=== PATIENT | male | born 1970 | race African-American/Black ===

== ENCOUNTER 2017-02-21 15:05 | Emergency (ER) | payer BC, OTHER ==
[2017-02-21 15:12] VITALS: BP 141/95; PULSE 48; TEMP 98.1; BMI 26.4
--- NOTE | 2017-02-21 16:07 | PDOC ---
History of Present Illness - General Chief Complaint: Back Pain Stated Complaint: BACK PAIN Time Seen by Provider: 02/21/17 15:33 History Source: Patient Exam Limitations: No Limitations - History of Present Illness Initial Comments: CHIEF COMPLAINT: 46 y/o afebrile male with PMH HTN c/o back spasms for the past few days. HISTORY OF PRESENT ILLNESS: The patient states he get back spasms from time to time and the other day he fell onto his butt and has had spasms ever since. he states he normally takes flexeril for the spams but doesn't have any more. He denies LOC, head trauma, n/v/d, midline spine TTP, bowel/bladder incontinence, saddle anesthesia, hematuria, dysuria. Vital signs on arrival are notable for pulse of 48. REVIEW OF SYSTEMS: GENERAL/CONSTITUTIONAL: No fever/chills. No weakness. No weight change. GASTROINTESTINAL: No abd pain, nausea, vomiting, diarrhea. GENITOURINARY: No dysuria, frequency, or change in urination. MUSCULOSKELETAL: +right back spasm. No neck or back pain. SKIN: No rash or easy bruising. NEUROLOGIC: No headache, vertigo, loss of consciousness, or loss of sensation. PHYSICAL EXAM: GENERAL: The patient is awake, alert, and fully oriented, in no acute distress. He is well appearing, ambulatory, in NAD or obvious discomfort. HEAD: Normal with no signs of trauma. ABDOMEN: Soft, non-distended, non-tender even to deep palpation, no hepatomegaly or splenomegaly, no masses. BACK: No CVA TTP b/l. some discomfort with lateral lumbar spine movements. TTP of right lumbar paravertebral muscles at level of L1-L2. No spasms noted. EXTREMITIES: Normal range of motion, no edema. NEUROLOGICAL: Normal speech, normal gait. CN II-XII grossly intact. No saddle anesthesia. PSYCH: Normal mood, normal affect. SKIN: Warm, dry, normal turgor, no rashes or lesions noted. Past History - Past Medical History Allergies/Adverse Reactions: Allergies Allergy/AdvReac Type Severity Reaction Status Date / Time No Known Allergies Allergy Verified 02/21/17 15:08 Home Medications: Ambulatory Orders Cyclobenzaprine HCl [Flexeril 10 mg] 10 mg PO TID PRN #20 tablet 02/21/17 Lisinopril [Prinivil] 10 mg PO DAILY 02/21/17 HTN: Yes - Immunization History Immunization Up to Date: Yes - Psycho/Social/Smoking Cessation Hx Suicidal Ideation: No Smoking Status: No Smoking History: Never smoked Number of Cigarettes Smoked Daily: 0 Information on smoking cessation initiated: No Hx Alcohol Use: No Drug/Substance Use Hx: No *Physical Exam - Vital Signs Last Vital Signs Temp Pulse Resp BP Pulse Ox 98.1 F 48 L 17 141/95 98 02/21/17 15:09 02/21/17 15:09 02/21/17 15:09 02/21/17 15:09 02/21/17 15:09 Medical Decision Making - Medical Decision Making A/P: 46 y/o male with right upper back pain. Plan is to discharge to home with rx for flexeril. Informed the patient it may cause drowsiness. Suggested he also use heat and massage to the affected area. Instructed him to return to the ER with any worsening or concerning symptoms. The patient verbalizes understanding of all instructions, has no further questions and is awaiting discharge. *DC/Admit/Observation/Transfer Diagnosis at time of Disposition: Muscle spasm - Discharge Dispostion Disposition: HOME Condition at time of disposition: Good - Prescriptions Prescriptions: Cyclobenzaprine HCl [Flexeril 10 mg] 10 mg PO TID PRN #20 tablet PRN Reason: Muscle Spasms - Referrals Referrals: Femi Montanez [Primary Care Provider] - - Patient Instructions Printed Discharge Instructions: DI for Back Spasm Additional Instructions: Discharge Instructions: -A muscle relaxer was sent to your pharmacy; it may cause drowsiness -Apply heating pad and massage to affected area -Return to the ER with any worsening or concerning symptoms
[2017-02-21] MEDS ORDERED: CYCLOBENZAPRINE HCL 10 MG TABLET (FP) PO ONE (16:11)
[2017-02-21] MEDS ORDERED: CYCLOBENZAPRINE HCL 10 MG TABLET (FP) ONE (16:30)
== END 2017-02-21 16:34 | disposition home or self-care (01) ==
LOC: JERFT 15:05
DX: M54.6 Pain in thoracic spine (principal); M62.830 Muscle spasm of back; W19.XXXA Unspecified fall, initial encounter; Y93.89 Activity, other specified; Y92.89 Other specified places as the place of occurrence of the external cause
CPT/HCPCS: 99281-25

== ENCOUNTER 2018-01-10 08:11 | Emergency (ER) | payer BC, OTHER ==
[2018-01-10 08:14] VITALS: BP 145/70; PULSE 52; TEMP 98; BMI 26.4
[2018-01-10] MEDS ORDERED: DIPHTH,PERTUSS(ACELL),TET 0.5 ML DISP.SYRIN IM ONE (08:38)
[2018-01-10] MEDS ORDERED: IBUPROFEN 600 MG TABLET (FP) PO ONE ×2 (08:38→08:42)
--- NOTE | 2018-01-10 08:43 | PDOC ---
History of Present Illness - General Chief Complaint: Injury Stated Complaint: FALL/ THIGH, ANKLE PAIN Time Seen by Provider: 01/10/18 08:21 History Source: Patient Exam Limitations: No Limitations - History of Present Illness Initial Comments: 01/10/18 08:38 was walking down stairs , missed a step and fell sideways landing on left hip / lateral lower leg yesterdayu. Able to bear weight but painful. No other injury Occurred: reports: yesterday Severity: reports: mild, moderate Pain Location: reports: lower extremity (left leg/ hip and tibia) Method of Injury: Yes: fall Modifying Factors: improves with: None Loss of Consciousness: no loss of consciousness Associated Symptoms (Fall): denies symptoms Past History - Travel Traveled outside of the country in the last 30 days: No Close contact w/someone who was outside of country & ill: No - Past Medical History Allergies/Adverse Reactions: Allergies Allergy/AdvReac Type Severity Reaction Status Date / Time No Known Allergies Allergy Verified 01/10/18 08:12 Home Medications: Ambulatory Orders Lisinopril [Prinivil] 10 mg PO DAILY 02/21/17 COPD: No HTN: Yes - Immunization History Immunization Up to Date: Yes - Suicide/Smoking/Psychosocial Hx Smoking Status: No Smoking History: Never smoked Number of Cigarettes Smoked Daily: 0 Information on smoking cessation initiated: No Hx Alcohol Use: No Drug/Substance Use Hx: No Substance Use Type: None Review of Systems - Review of Systems Able to Perform ROS?: Yes Is the patient limited Italian proficient: Yes Constitutional: Yes: Symptoms Reported, See HPI. No: Malaise Musculoskeletal: Yes: Symptoms Reported, See HPI, Joint Pain, Joint Swelling, Muscle Pain (left thigh/ quads). No: Back Pain Integumentary: Yes: See HPI, Bruising Neurological: No: Symptoms reported All Other Systems: Reviewed and Negative *Physical Exam - Vital Signs Last Vital Signs Temp Pulse Resp BP Pulse Ox 98.0 F 52 L 18 145/70 100 01/10/18 08:12 01/10/18 08:12 01/10/18 08:12 01/10/18 08:12 01/10/18 08:12 - Physical Exam General Appearance: Yes: Nourished, Appropriately Dressed. No: Apparent Distress HEENT: positive: EMMETT, Normal ENT Inspection Neck: positive: Supple Respiratory/Chest: negative: Chest Tender Gastrointestinal/Abdominal: positive: Soft. negative: Tender Musculoskeletal: negative: Normal Inspection, Decreased Range of Motion, Vertebral Tenderness Extremity: positive: Normal Capillary Refill, Swelling (mild contusion/ hematoma to lateral edge of upper tibia. No crepitus or stepoff . Neurovasc intact to feet. ). negative: Normal Inspection, Normal Range of Motion (some limitation due to swellign and pain to lateral left leg/ greater trocanter - ~~ 10cm2 hematoma to same, FROM at hip / knee, Able to contract quads well. ) Integumentary: positive: Ecchymosis, Bruising Neurologic: positive: sleep medicine physician II-XII NML intact, Fully Oriented, Alert, Normal Mood/ Affect, Normal Response, Motor Strength 02/15 Progress Note - Progress Note Progress Note: s/P fall with multiple hematomas/contusions. No evidence of fracture or deformity therefore will hold Exrays/ Treat conservatively. Boostrix updated today. *DC/Admit/Observation/Transfer Diagnosis at time of Disposition: Hematoma of hip Qualifiers: Encounter type: initial encounter Laterality: left Qualified Code(s): S70.02XA - Contusion of left hip, initial encounter - Discharge Dispostion Disposition: HOME Condition at time of disposition: Stable Admit: No - Referrals Referrals: Femi Montanez [Primary Care Provider] - - Patient Instructions Printed Discharge Instructions: DI for Contusion Additional Instructions: Rest, ice to area on and off for 15 minutes 4-6 times a day Avoid heavy lifting or exercise until pain and swelling is resolved or until further directed Keep area highly elevated to reduce swelling Use splints/Victor Manuel wrap as directed Followup with orthopedist in one to 2 days if not improving, if significantly improved may wait one week for followup with orthopedist May use ibuprofen 2-200 mg tablets every 6 hours as needed for pain - Post Discharge Activity Forms/Work/School Notes: Back to Work
== END 2018-01-10 08:52 | disposition home or self-care (01) ==
LOC: JERFT 08:11
PROC: 3E0234Z Introduction of Serum, Toxoid and Vaccine into Muscle, Percutaneous Approach (ICD-10-PCS; principal; 2018-01-10)
DX: S70.02XA Contusion of left hip, initial encounter (principal); W10.8XXA Fall (on) (from) other stairs and steps, initial encounter; Y93.89 Activity, other specified; Y92.89 Other specified places as the place of occurrence of the external cause; Y99.8 Other external cause status; I10 Essential (primary) hypertension
CPT/HCPCS: 90715; 99281-25

== ENCOUNTER 2018-02-23 19:59 | Emergency (ER) | payer BC ==
[2018-02-23 20:09] VITALS: BP 125/72; PULSE 58; TEMP 98; BMI 26.1
--- NOTE | 2018-02-23 21:12 | PDOC ---
History of Present Illness - General Chief Complaint: Injury Stated Complaint: PAIN Time Seen by Provider: 02/23/18 20:39 History Source: Patient Exam Limitations: No Limitations - History of Present Illness Initial Comments: 02/23/18 21:09 47-year-old male without significant past medical history presents emergency Department with left foot pain status post dropping his phone. Patient noted he got this phone and stuck his foot out to break the fall of the phone which caused the fall and strike him on the dorsum of his left foot. Patient is able to walk on his foot. Past History - Past Medical History Allergies/Adverse Reactions: Allergies Allergy/AdvReac Type Severity Reaction Status Date / Time No Known Allergies Allergy Verified 02/23/18 20:06 Home Medications: Ambulatory Orders Lisinopril [Prinivil] 10 mg PO DAILY 02/21/17 COPD: No HTN: Yes - Immunization History Immunization Up to Date: Yes - Suicide/Smoking/Psychosocial Hx Smoking Status: No Smoking History: Never smoked Number of Cigarettes Smoked Daily: 0 Hx Alcohol Use: No Drug/Substance Use Hx: No Substance Use Type: None Review of Systems - Review of Systems Able to Perform ROS?: Yes Is the patient limited Nigerien proficient: No Constitutional: No: Symptoms Reported HEENTM: No: Symptoms Reported Respiratory: No: Symptoms reported Cardiac (ROS): No: Symptoms Reported ABD/GI: No: Symptoms Reported : No: Symptoms Reported Musculoskeletal: Yes: See HPI Integumentary: No: Symptoms Reported Neurological: No: Symptoms reported *Physical Exam - Vital Signs Last Vital Signs Temp Pulse Resp BP Pulse Ox 98 F 58 L 18 125/72 98 02/23/18 20:06 02/23/18 20:06 02/23/18 20:06 02/23/18 20:06 02/23/18 20:06 - Physical Exam General Appearance: Yes: Appropriately Dressed. No: Apparent Distress Respiratory/Chest: positive: Lungs Clear, Normal Breath Sounds. negative: Respiratory Distress, Accessory Muscle Use Cardiovascular: positive: Regular Rhythm, Regular Rate. negative: Murmur Vascular Pulses: Dorsalis-Pedis (R): 2+, Doralis-Pedis (L): 2+ Musculoskeletal: positive: Normal Inspection, Other (Tender to the dorsum of the left foot at the base of the great toe.). negative: CVA Tenderness Extremity: positive: Other (refer to musculoskeletal assessment) Integumentary: positive: Normal Color, Dry, Warm Neurologic: positive: Alert, Normal Response, Motor Strength 5/5 Medical Decision Making - Medical Decision Making 02/23/18 21:11 A/P: 47-year-old male without significant past medical history with left foot pain status post dropping his cell phone onto it Tenderness to the dorsum of the left foot at the base of the great toe Able to fully flex and extend great toe against resistance without difficulty. No erythema noted to the area X-rays, reassess 02/23/18 22:09 X-rays read by me: No fracture, subluxation or dislocation is present. I discussed the physical exam findings, ancillary test results and final diagnoses with the patient. I answered all of the patient's questions. The patient was satisfied with the care received and felt comfortable with the discharge plan and treatment plan. The patient will call his doctor within 96 hours to arrange follow-up and will return to the Emergency Department with any new, persistent or worsening symptoms. *DC/Admit/Observation/Transfer Diagnosis at time of Disposition: Foot contusion Qualifiers: Encounter type: initial encounter Laterality: left Qualified Code(s): S90.32XA - Contusion of left foot, initial encounter - Discharge Dispostion Disposition: HOME Condition at time of disposition: Stable Decision to Admit order: No - Referrals Referrals: Femi Montanez [Primary Care Provider] - Eric Baldwin MD [Staff Physician] - - Patient Instructions Additional Instructions: Take Tylenol or Motrin as needed for pain. Follow manufacturers instructions for appropriate dosage. Apply ice for 20 minutes and removed for at least 20 minutes before reapplying the ice. You've been given the number for a raymond mill operator. If symptoms do not resolve within the next 7 days call the raymond mill operator for further evaluation. Return to emergency department for discoloration of the foot, numbness or tingling to the foot, worsening pain, or any other concerns. Thank you very much for choosing us to provide your emergent healthcare needs. - Post Discharge Activity Forms/Work/School Notes: Back to Work
== END 2018-02-23 22:14 | disposition home or self-care (01) ==
LOC: JERFT 19:59
DX: S90.32XA Contusion of left foot, initial encounter (principal); W20.8XXA Other cause of strike by thrown, projected or falling object, initial encounter; Y93.89 Activity, other specified; Y92.89 Other specified places as the place of occurrence of the external cause; Y99.8 Other external cause status; I10 Essential (primary) hypertension
CPT/HCPCS: 73630-TC-LT; 99281-25

== ENCOUNTER 2018-07-27 00:55 | Emergency (ER) | payer BC ==
[2018-07-27 01:10] VITALS: TEMP 97.6; BMI 25.4
[2018-07-27] MEDS ORDERED: NITROGLYCERIN 2% OINTMENT - 1GM PACKET TD ONE ×2 (01:40→01:45)
[2018-07-27] MEDS ORDERED: NITROGLYCERIN SUBLINGUAL 1/150 0.4 MG TAB SL ONE (01:40)
--- NOTE | 2018-07-27 01:40 | PDOC ---
Attending Attestation - Resident Resident Name: Gilmer Law - ED Attending Attestation I have performed the following: I have examined & evaluated the patient, The case was reviewed & discussed with the resident, I agree w/resident's findings & plan - HPI HPI: 07/27/18 01:39 Pt comes with HTN. 07/27/18 02:49 He has not been taking lisinopril, beacause he is afraid that it is "too strong " for his kidneys. 07/27/18 02:52 He is anxious because his mom of aneurysm in the brain. He had a head CT 2 days ago in [facility]. also cxr done there so he is refusing one here. We will not repeat blood tests today. - Physicial Exam PE: 07/27/18 02:50 Agree with resident exam. - Medical Decision Making 07/27/18 02:51 Pt's BP came down with NTG and paste. to 150s systolic. Pt placed on diovan 40 mg. EKG is NSR/bradycardia. Pt will have utox sent. 07/27/18 05:38 We will be getting basic labs and cardiac enzymes, as he has 2+ blood in the urine, which may signify end oragan damage from elevated BPs. 07/27/18 19:31 Signed out to the day team; they can follow chemistries and refer pt to the process maintenance technician.
[2018-07-27] MEDS ORDERED: NITROGLYCERIN SUBLINGUAL 1/150 0.4 MG TAB ONE (01:45)
--- NOTE | 2018-07-27 02:06 | PDOC ---
History of Present Illness <Ozzie Rollins - Last Filed: 07/27/18 07:30> - General History Source: Patient - History of Present Illness Initial Comments: 48 y/o M w/PMH of HTN presents to the ER with elevated BP. Pt was driving home when he noticed b/l temporal throbbing FRAZIER and had blurry vision and some chest cramping for approximately 1 min and some dizziness came to the ER. He had similar symptoms 1 week ago and went to [facility] and was treated with nitropaste. Before that episode he never had these symptoms. He currently denies any of the symptoms. On presentation to the ER his BP was 190/90. At home his pressures run from 150-160/70-90s. He denies N/V/F/C, SOB, LE edema, abd pain, dysuria, change in BMs. PMH: HTN PSHx: L testicle removal; Knee arthroscopic surgery SH: denies smoking. Drinks 3-4 beers on weekends. No drug use. FH: Mother passed from aneurysm Allergies: Shellfish Medications: Lisinopril/HCTZ <Gilmer Law - Last Filed: 07/27/18 19:30> - General Chief Complaint: Blood Pressure Problem Stated Complaint: HIGH BP/HEADACHE Time Seen by Provider: 07/27/18 01:23 Past History <Ozzie Rollins - Last Filed: 07/27/18 07:30> - Past Medical History COPD: No HTN: Yes - Immunization History Immunization Up to Date: Yes - Suicide/Smoking/Psychosocial Hx Smoking Status: No Smoking History: Never smoked Number of Cigarettes Smoked Daily: 0 Hx Alcohol Use: No Drug/Substance Use Hx: No Substance Use Type: None <Gilmer Law - Last Filed: 07/27/18 19:30> - Past Medical History Allergies/Adverse Reactions: Allergies Allergy/AdvReac Type Severity Reaction Status Date / Time shellfish derived Allergy Verified 07/27/18 01:02 Home Medications: Ambulatory Orders Lisinopril [Prinivil] 10 mg PO DAILY 02/21/17 Hydrochlorothiazide 12.5 mg PO DAILY 07/27/18 Review of Systems - Review of Systems Able to Perform ROS?: Yes Constitutional: No: Chills, Fever HEENTM: Yes: Blurred Vision Respiratory: No: Cough, Shortness of Breath Cardiac (ROS): Yes: Chest Pain ABD/GI: No: Nausea, Vomiting : No: Dysuria Neurological: Yes: Headache, Dizziness Psychiatric: Yes: Anxiety <Gilmer Law - Last Filed: 07/27/18 19:30> *Physical Exam - Vital Signs Last Vital Signs Temp Pulse Resp BP Pulse Ox 97.6 F 89 19 130/89 100 07/27/18 01:00 07/27/18 05:07 07/27/18 05:07 07/27/18 05:07 07/27/18 05:07 <Ozzie Rollins - Last Filed: 07/27/18 07:30> - Vital Signs Last Vital Signs Temp Pulse Resp BP Pulse Ox 97.6 F 52 L 19 151/96 99 07/27/18 01:00 07/27/18 01:54 07/27/18 01:54 07/27/18 01:54 07/27/18 01:54 - Physical Exam General Appearance: Yes: Nourished, Appropriately Dressed. No: Apparent Distress HEENT: positive: EOMI, EMMETT, Normal Voice, Other (Normal fundoscopic exam) Neck: positive: Supple Respiratory/Chest: positive: Lungs Clear, Normal Breath Sounds. negative: Respiratory Distress Cardiovascular: positive: Regular Rhythm, Regular Rate, S1, S2. negative: Murmur Gastrointestinal/Abdominal: positive: Normal Bowel Sounds, Soft. negative: Tender Extremity: negative: Pedal Edema Neurologic: positive: Fully Oriented, Alert, Normal Mood/Affect <Gilmer Law - Last Filed: 07/27/18 19:30> ED Treatment Course - LABORATORY CBC & Chemistry Diagram: 07/27/18 05:54 07/27/18 05:54 - ADDITIONAL ORDERS Additional order review: Laboratory Results 07/27/18 07/27/18 07/27/18 05:54 04:50 04:50 Sodium 144 Potassium 3.9 Chloride 108 H Carbon Dioxide 31 Anion Gap 5 L BUN 11 Creatinine 1.2 Creat Clearance w eGFR > 60 Random Glucose 104 Calcium 8.7 Total Bilirubin 0.4 AST 29 ALT 60 Alkaline Phosphatase 70 Creatine Kinase 99 Troponin I < 0.02 Total Protein 7.0 Albumin 3.8 Urine Color Ltyellow Urine Appearance Clear Urine pH 6.0 Ur Specific [place] 1.012 Urine Protein Negative Urine Glucose (UA) Negative Urine Ketones Negative Urine Blood 2+ H Urine Nitrite Negative Urine Bilirubin Negative Urine Urobilinogen Negative Ur Leukocyte Esterase Negative Urine WBC (Auto) 1 Urine RBC (Auto) 3 Urine Mucus Rare Opiates Screen Negative Methadone Screen Negative Barbiturate Screen Negative Phencyclidine Screen Negative Ur Amphetamines Screen Negative MDMA (Ecstasy) Screen Negative Benzodiazepines Screen Negative Cocaine Screen Negative U Marijuana (THC) Screen Negative 07/27/18 05:54 RBC 4.54 MCV 90.9 MCHC 33.9 RDW 13.5 MPV 6.9 L Neutrophils % 72.4 Lymphocytes % 21.1 Monocytes % 4.9 Eosinophils % 1.0 Basophils % 0.6 - Medications Given in the ED: ED Medications Discontinued Medications Generic Name Dose Route Start Last Admin Trade Name Freq PRN Reason Stop Dose Admin Nitroglycerin 1 inch 07/27/18 01:40 07/27/18 01:52 Nitro-Bid 2% Paste - TD 07/27/18 01:41 1 inch ONCE ONE Administration Nitroglycerin 0.4 mg 07/27/18 01:40 07/27/18 01:52 Nitrostat - SL 07/27/18 01:41 0.4 mg ONCE ONE Administration Valsartan 40 mg 07/27/18 02:25 07/27/18 02:33 Diovan - PO 07/27/18 02:26 40 mg ONCE ONE Administration <Ozzie Rollins - Last Filed: 07/27/18 07:30> - LABORATORY CBC & Chemistry Diagram: 07/27/18 05:54 07/27/18 05:54 - Medications Given in the ED: ED Medications Discontinued Medications Generic Name Dose Route Start Last Admin Trade Name Freq PRN Reason Stop Dose Admin Nitroglycerin 1 inch 07/27/18 01:40 07/27/18 01:52 Nitro-Bid 2% Paste - TD 07/27/18 01:41 1 inch ONCE ONE Administration Nitroglycerin 0.4 mg 07/27/18 01:40 07/27/18 01:52 Nitrostat - SL 07/27/18 01:41 0.4 mg ONCE ONE Administration <Gilmer Law - Last Filed: 07/27/18 19:30> Medical Decision Making - Medical Decision Making 07/27/18 02:01 Pt has gone over 24 hr w/o his BP meds (normally takes them q24h) 1 inch nitropaste given. CXR ordered EKG ordered 07/27/18 02:06 BP after nitropaste : 151/96 07/27/18 02:45 BP now 126/87. Pt feels better. No CP, N/V, blurry vision, FRAZIER, dizziness. EKG shows: sinus bradycardia @ 44 bpm. QTc [address] segment elevations or depressions noted. Pt refused CXR. Utox also ordered. Diovan 40 mg given 07/27/18 02:51 Nitropaste removed. 07/27/18 05:37 UA with 2+ blood but only 3RBC Will check CBC, CMP, cardiac profile Labs wnl. To be discharged home. Medication compliance strongly advised. <Gilmer Law - Last Filed: 07/27/18 19:30> *DC/Admit/Observation/Transfer <Ozzie Rollins - Last Filed: 07/27/18 07:30> - Discharge Dispostion Decision to Admit order: No <Gilmer Law - Last Filed: 07/27/18 19:30> Diagnosis at time of Disposition: Hypertensive urgency - Discharge Dispostion Disposition: HOME Condition at time of disposition: Good - Referrals Referrals: Carlos Manuel Sparks MD [Staff Physician] - - Patient Instructions Printed Discharge Instructions: DI for High Blood Pressure Additional Instructions: Please follow up with your primary care physician within 1 week. Check your blood pressure at home and keep a log of it to show your doctor. If you develop worsening of your current symptoms or new onset of concerning symptoms please come back to the ER.
[2018-07-27] MEDS ORDERED: VALSARTAN 40 MG TABLET (FP) PO ONE (02:25)
[2018-07-27] MEDS ORDERED: VALSARTAN 80 MG TABLET (UD) ONE (02:28)
[2018-07-27 05:08] LABS: URINE APPEARANCE CLEAR; URINE BILIRUBIN NEGATIVE (<2.0 mg/dL); URINE COLOR LTYELLOW; URINE GLUCOSE (UA) NEGATIVE (NEGATIVE); URINE KETONE NEGATIVE (NEGATIVE); URINE LEUK ESTERASE NEGATIVE (NEGATIVE); URINE NITRITE NEGATIVE (NEGATIVE); URINE PROTEIN NEGATIVE (NEGATIVE); URINE UROBILINOGEN NEGATIVE mg/dL (0.2-1.0)
[2018-07-27 05:20] LABS: URINE MUCUS RARE
[2018-07-27 05:42] LABS: COCAINE, UR NEGATIVE ng/ml (CUTOFF=300); METHADONE, UR NEGATIVE ng/ml (CUTOFF=300); OPIATES, URI NEGATIVE ng/ml (CUTOFF=300); PHENCYCLIDINE,URINE NEGATIVE ng/ml (CUTOFF=25); URINE AMPHETAMINES NEGATIVE ng/ml (CUTOFF=500); URINE BARBITURATES NEGATIVE ng/ml (CUTOFF=200); URINE BENZODIAZEPINES NEGATIVE ng/ml (CUTOFF=200)
[2018-07-27 06:12] LABS: BASO % 0.6 % (0-2.0); HEMATOCRIT 41.3 % (35.4-49); LYMPH % 21.1 % (8-40); MCH 30.8 pg (25.7-33.7); MCHC 33.9 g/dl (32.0-35.9); MEAN CELL VOLUME 90.9 fl (80-96); MEAN PLT VOLUME 6.9 fl (7.5-11.1); MONO % 4.9 % (3.8-10.2); NEUT % 72.4 % (42.8-82.8); PLATELET COUNT 197 K/MM3 (134-434); RBC 4.54 M/mm3 (4.00-5.60); RDW 13.5 % (11.9-15.9); WHITE BLOOD COUNT 9.3 K/mm3 (4.0-10.0)
[2018-07-27 07:04] LABS: ALBUMIN 3.8 g/dl (3.4-5.0); ALK PHOS 70 U/L (45-117); ANION GAP 5 MMOL/L (8-16); BILIRUBIN,TOTAL 0.4 mg/dL (0.2-1); BLOOD UREA NITROGEN 11 mg/dL (7-18); CALCIUM 8.7 mg/dL (8.5-10.1); CHLORIDE 108 mmol/L (98-107); CO2 31 mmol/L (21-32); CREATININE 1.2 mg/dL (0.55-1.3); GLUCOSE,RANDOM 104 mg/dL (74-106); POTASSIUM 3.9 mmol/L (3.5-5.1); SGOT/AST 29 U/L (15-37); SGPT/ALT 60 U/L (13-61); SODIUM 144 mmol/L (136-145)
[2018-07-27 07:46] VITALS: BP 152/99; PULSE 51
--- NOTE | 2018-07-28 10:33 | EKG ---
Test Reason : Blood Pressure : / mmHG Vent. Rate : 044 BPM Atrial Rate : 044 BPM P-R Int : 160 ms QRS Dur : 102 ms QT Int : 456 ms P-R-T Axes : 052 -13 021 degrees QTc Int : 389 ms MARKED SINUS BRADYCARDIA ABNORMAL ECG WHEN COMPARED WITH ECG OF 25-MAY-2009 18:58, NO SIGNIFICANT CHANGE WAS FOUND Confirmed by TREVOR JETT MD ([id number]) on 07/28/2018 10:32:53 AM Referred By: Confirmed By:TREVOR JETT MD
== END 2018-07-27 07:57 | disposition home or self-care (01) ==
LOC: JER 00:55
DX: I16.0 Hypertensive urgency (principal)
CPT/HCPCS: 36415; 80053; 80307; 81003; 81015; 82550; 84484; 85025; 93005; 93010; 99283-25